=== PATIENT | male | born 1985 ===

== ENCOUNTER 2024-04-12 15:11 | Outpatient (REF) | payer BC, SELFPAY ==
[2024-04-12 14:55] LABS: HCT 42.5 % (40.0-50.0); HGB 14.5 g/dL (13.5-17.5); MCH 30.3 pg (27.0-33.0); MCHC 34.1 % (32.0-36.0); MCV 89 fL (80-95); MPV 11.4 fL (8.0-11.0); Platelet Count 252 10^3/uL (130-400); RBC 4.78 10^6/uL (4.36-5.78); RDW 13.2 % (11.8-14.1); RDW-SD 42.9 fL; WBC 5.67 10^3/uL (4.4-10.8)
[2024-04-12 15:13] LABS: Hemoglobin A1C 5.9 % (<5.7)
[2024-04-12 15:31] LABS: ALT 38 U/L (16-63); AST 30 U/L (15-37); Albumin 4.4 g/dL (3.4-5.0); Alkaline Phosphatase 81 U/L (46-116); Anion Gap 7.6 mmol/L (3-11); BUN 17 mg/dL (7-18); Bilirubin, Total 0.71 mg/dL (0.2-1.0); CO2 29.4 mmol/L (21.0-32.0); CREATININE 1.2 mg/dL (0.70-1.30); Calcium 9.5 mg/dL (8.5-10.1); Calculated LDL 158 mg/dL (<100); Chloride 103 mmol/L (98-107); Cholesterol 231 mg/dL (<200); Estimated GFR 78.89 (mL/min/1.73m2); Glucose 103 mg/dL (74-106); HDL Cholesterol 45 mg/dL (40-60); Sodium 140 mmol/L (136-145); Total Protein 7.6 g/dL (6.4-8.2); Triglyceride 143 mg/dL (<150); Vitamin D 25 Total 65.7 ng/mL (30-100)
[2024-04-16 13:31] LABS: Testosterone, Total 284 ng/dL (240-950)
== END 2024-04-12 15:12 | disposition home or self-care (01) ==
LOC: NCHCN 15:11
PROVIDERS: Visit Provider Nurse Practitioner Family
DX: R53.83 Other fatigue (principal); E55.9 Vitamin D deficiency, unspecified; Z13.1 Encounter for screening for diabetes mellitus; F52.21 Male erectile disorder; Z13.220 Encounter for screening for lipoid disorders
CPT/HCPCS: 80053; 80061; 82306; 84403; 85027; 83036

== ENCOUNTER 2024-08-10 17:31 | Outpatient (REF) | payer BC, SELFPAY ==
[2024-08-14 12:32] LABS: IgA 186 mg/dL (85-499); Interpretation (See Note); Tissue Transglutaminase IgA <4.0 CU (<20.0)
== END 2024-08-10 17:32 | disposition home or self-care (01) ==
LOC: NCHCN 17:31
PROVIDERS: Visit Provider Nurse Practitioner Family
DX: R10.9 Unspecified abdominal pain (principal)
CPT/HCPCS: 82784; 83516